=== PATIENT | male | born 1975 | race Caucasian/White ===

== ENCOUNTER 2016-11-22 20:29 | Emergency (ER) | payer SELFPAY ==
[~2016-11-22] VITALS: Ht 182.9 cm; Wt 106.8 kg
[~2016-11-22 20:29] MED LIST: AMOXICILLIN 50500 MG PO
[2016-11-22 23:15] VITALS: BP 135/85
== END 2016-11-22 23:15 | disposition home or self-care (01) ==
LOC: ED 20:29
DX: S61.012A Laceration without foreign body of left thumb without damage to nail, initial encounter (principal); W29.8XXA Contact with other powered hand tools and household machinery, initial encounter; Y92.009 Unspecified place in unspecified non-institutional (private) residence as the place of occurrence of the external cause